=== PATIENT | male | born 1975 | race Caucasian/White ===

== ENCOUNTER 2022-10-07 09:36 | Emergency (ER) | payer OTHER, SELFPAY ==
[~2022-10-07] VITALS: Ht 175.3 cm; Wt 82.9 kg
[2022-10-07 09:37] VITALS: TEMP 96.8
[2022-10-07] MEDS ORDERED: TRUL0.5I SC (10:03)
[2022-10-07] MEDS ORDERED: LANTINJ4 SC (10:03)
[2022-10-07] MEDS ORDERED: HUMA100I3 SC (10:03)
[2022-10-07] MEDS ORDERED: METF-877 PO (10:04)
[2022-10-07 11:59] LABS: VENOUS BASE EXCESS -2.5 (-2.0-2.0); VENOUS HCO3 22.1 MMOL/L (23.0-27.0); VENOUS O2 SATURATION 87.8 % (60.0-80.0); VENOUS PARTIAL PRESSURE CO2 38.3 mmHg (38.0-50.0); VENOUS PARTIAL PRESSURE O2 55.1 mmHg (30.0-50.0); VENOUS STANDARD HCO3 22.1 MMOL/L; VENOUS TOTAL CO2 23.3 MMOL/L (24.0-28.0)
[2022-10-07 12:08] LABS: BASO # 0.1 10^3/uL (0.0-0.2); BASO % 0.7 % (0.0-1.0); EOS # 0.1 10^3/uL (0.0-0.5); EOS % 1.8 % (0.0-3.0); HEMATOCRIT 42.1 % (42.0-52.0); HEMOGLOBIN 14.7 g/dl (13.5-17.5); MEAN CORPUSCULAR HEMOGLOBIN 31.1 pg (27.0-33.0); MEAN CORPUSCULAR HGB CONC 34.9 g/dl (32.0-36.5); MONO # 0.5 10^3/uL (0.0-0.8); MONO % 7.6 % (2.0-8.0); NEUTROPHILS # 4.1 10^3/uL (1.5-8.5); NEUTROPHILS % 60.5 % (36.0-66.0); PLATELET COUNT, AUTOMATED 337 10^3/uL (150-450); RED BLOOD COUNT 4.73 10^6/uL (4.30-6.10); WHITE BLOOD COUNT 6.7 10^3/uL (4.0-10.0)
[2022-10-07 12:18] LABS: HEMOGLOBIN A1c 13.8 % (4.0-6.0)
[2022-10-07 12:37] LABS: LIPASE 48 U/L (12-53); OSMOLALITY SERUM 305 MOSM/KG (275-295)
[2022-10-07 12:39] LABS: ALBUMIN 3.7 G/DL (3.2-5.2); ALKALINE PHOSPHATASE 188 U/L (46-116); ALT/SGPT 17 U/L (7.0-40); AST/SGOT < 8 U/L (<34); BILIRUBIN,DIRECT < 0.1 MG/DL (<0.4); BILIRUBIN,TOTAL 0.4 MG/DL (0.3-1.2); TOTAL PROTEIN 7.3 G/DL (5.7-8.2)
[2022-10-07 12:41] LABS: ACETONE/KETONE 0.23 MMOL/L (0.02-0.27)
[2022-10-07] MEDS ORDERED: NS 1,000 ML IV ONE (13:40)
[2022-10-07] MEDS ORDERED: ONDANSETRON 4MG 2ML VIAL IV ONE (13:40)
[2022-10-07] MEDS ORDERED: KETOROLAC 30 MG/ML 1ML VIAL IV ONE (13:40)
[2022-10-07] MEDS ORDERED: ISOVUE-370 76% 100ML VIAL As Ordered ONE (13:47)
[2022-10-07] MEDS: GASTROGRAFIN SOLUTION 30ML PO SCH ×2 (13:57→14:43)
[2022-10-07 16:15] VITALS: BP 116/81
[2022-10-07 17:15] VITALS: O2SAT 98
== END 2022-10-07 17:24 | disposition home or self-care (01) ==
LOC: M ED 09:36
DX: K59.00 Constipation, unspecified (principal); E11.8 Type 2 diabetes mellitus with unspecified complications; Z83.3 Family history of diabetes mellitus; Z79.4 Long term (current) use of insulin; Z88.8 Allergy status to other drugs, medicaments and biological substances
CPT/HCPCS: 74177; 80047; 80076; 81001; 82010; 82803; 83036; 83690; 83930; 85025; 93005; 96374; 96375; 99285; J1885; J2405; Q9963; Q9967

== ENCOUNTER 2022-10-20 08:04 | Emergency (ER) | payer OTHER ==
[~2022-10-20] VITALS: Ht 175.3 cm; Wt 84.1 kg
[~2022-10-20 08:04] MED LIST: HUMA100I3 SC; LANTINJ4 SC; METF-877 PO; TRUL0.5I SC
[2022-10-20] MEDS ORDERED: NAPR-837 PO (10:37)
[2022-10-20 11:21] VITALS: BP 104/71; TEMP 98.2; O2SAT 100
== END 2022-10-20 11:23 | disposition home or self-care (01) ==
LOC: M ED 08:04
DX: M75.32 Calcific tendinitis of left shoulder (principal); E11.9 Type 2 diabetes mellitus without complications; Z79.4 Long term (current) use of insulin; Z88.8 Allergy status to other drugs, medicaments and biological substances

== ENCOUNTER → 2022-12-22 | Outpatient (CLI) | payer OTHER ==
[~2022-12-22] MED LIST changes: +ATOR40TA75 PO; +NAPR-837 PO; +TRES1INJ SC
== END ==
LOC: M SOG 15:58
PROVIDERS: ATTEND Orthopaedic Surgery
DX: M25.512 Pain in left shoulder (principal); M19.011 Primary osteoarthritis, right shoulder; M19.012 Primary osteoarthritis, left shoulder

== ENCOUNTER → 2023-02-01 | Outpatient (REF) | payer OTHER ==
[~2023-02-01] MED LIST changes: -ATOR40TA75 PO; -TRES1INJ SC
[2023-02-01 17:04] LABS: HEMATOCRIT 42.5 % (42.0-52.0); HEMOGLOBIN 15.2 g/dl (13.5-17.5); MEAN CORPUSCULAR HEMOGLOBIN 31.3 pg (27.0-33.0); MEAN CORPUSCULAR HGB CONC 35.8 g/dl (32.0-36.5); MEAN CORPUSCULAR VOLUME 87.6 fl (80.0-96.0); PLATELET COUNT, AUTOMATED 339 10^3/uL (150-450); RED BLOOD COUNT 4.85 10^6/uL (4.30-6.10); WHITE BLOOD COUNT 8.1 10^3/uL (4.0-10.0)
[2023-02-01 18:00] LABS: ALBUMIN 3.8 G/DL (3.2-5.2); ALKALINE PHOSPHATASE 169 U/L (46-116); ALT/SGPT 20 U/L (7.0-40); AST/SGOT < 8 U/L (<34); BILIRUBIN,TOTAL 0.5 MG/DL (0.3-1.2); BLOOD UREA NITROGEN 13 MG/DL (9-23); CALCIUM LEVEL 9.3 MG/DL (8.5-10.1); CARBON DIOXIDE LEVEL 27 MMOL/L (20-31); CHLORIDE LEVEL 97 MMOL/L (98-107); CHOLESTEROL LEVEL 208 MG/DL (<200); CHOLESTEROL RISK RATIO 6.13 (<5); CREATININE FOR GFR 0.67 MG/DL (0.70-1.30); GLOMERULAR FILTRATION RATE > 60.0 (>60); GLUCOSE, FASTING 296 MG/DL (60-100); HDL CHOLESTEROL 33.9 MG/DL (>40); NON-HDL-C 174.1 MG/DL; POTASSIUM SERUM 4.5 MMOL/L (3.5-5.1); SODIUM LEVEL 132 MMOL/L (136-145); THYROID STIMULATING HORMONE 2.412 uIU/ML (0.55-4.78); TOTAL PROTEIN 7.5 G/DL (5.7-8.2); TRIGLYCERIDES LEVEL 461 MG/DL (<150)
== END ==
LOC: M LAB REF 16:22
PROVIDERS: ATTEND Family Medicine Addiction Medicine
DX: E11.9 Type 2 diabetes mellitus without complications (principal)

== ENCOUNTER 2023-03-23 06:06 | Day surgery (SDC) | payer OTHER ==
[~2023-03-23] VITALS: Ht 172.7 cm; Wt 86.2 kg
[~2023-03-23 06:06] MED LIST changes: +ATOR40TA75 PO; +BSS IRRIG/VANCO(10MG)/TOBRA(5MG)/EPINEPH(1:1000-0.5CC)500ML BAG-ORONLY IR ONE; +CYCLOPENTOLATE 1% OPHTH SOLN 2ML BTL OD SCH; +LIDOCAINE 3.5 % 1ML OPHTH TOPICAL GEL OU ONE; +OFLOXACIN 0.3 % (OCUFLOX) OPTH SOL 5ML OD ONE; +PHENYLEPHRINE 10% OPHTH SOL 5ML OD PRN; +PHENYLEPHRINE 2.5% OPHTH SOL 2ML OD SCH; +TRES1INJ SC; +TROPICAMIDE 1% OPHTH SOLN 15ML OD SCH
[2023-03-23] MEDS ORDERED: LIDOCAINE 1% SDV 5ML VIAL As Ordered ONE (06:33)
[2023-03-23] MEDS ORDERED: CEFUROXIME 1MG/0.1ML INTRACAMERAL INJ As Ordered ONE (06:34)
[2023-03-23] MEDS ORDERED: fentaNYL 100 MCG/2 ML INJECTION As Ordered ONE (06:56)
[2023-03-23] MEDS ORDERED: MIDAZOLAM INJ 2MG/2ML VIAL As Ordered ONE (06:56)
[2023-03-23 10:00] VITALS: BP 138/86; TEMP 98.2; O2SAT 92
== END 2023-03-23 13:25 | disposition home or self-care (01) ==
LOC: M SDC 06:06
PROVIDERS: ATTEND Ophthalmology
DX: E11.36 Type 2 diabetes mellitus with diabetic cataract (principal); H25.11 Age-related nuclear cataract, right eye; Z79.899 Other long term (current) drug therapy; Z79.85 Long-term (current) use of injectable non-insulin antidiabetic drugs; Z88.8 Allergy status to other drugs, medicaments and biological substances
CPT/HCPCS: 66984; J0697; J2250; J3010; V2632

== ENCOUNTER → 2023-05-30 | Outpatient (REF) | payer OTHER, MEDICAID ==
[~2023-05-30] MED LIST changes: -BSS IRRIG/VANCO(10MG)/TOBRA(5MG)/EPINEPH(1:1000-0.5CC)500ML BAG-ORONLY IR ONE; -CYCLOPENTOLATE 1% OPHTH SOLN 2ML BTL OD SCH; +GABA-282 PO; -LIDOCAINE 3.5 % 1ML OPHTH TOPICAL GEL OU ONE; -OFLOXACIN 0.3 % (OCUFLOX) OPTH SOL 5ML OD ONE; -PHENYLEPHRINE 10% OPHTH SOL 5ML OD PRN; -PHENYLEPHRINE 2.5% OPHTH SOL 2ML OD SCH; -TROPICAMIDE 1% OPHTH SOLN 15ML OD SCH
[2023-05-30 18:46] LABS: ALBUMIN 3.8 G/DL (3.2-5.2); ALKALINE PHOSPHATASE 169 U/L (46-116); ALT/SGPT 23 U/L (7.0-40); AST/SGOT 23 U/L (<34); BILIRUBIN,TOTAL 0.5 MG/DL (0.3-1.2); BLOOD UREA NITROGEN 16 MG/DL (9-23); CALCIUM LEVEL 9.7 MG/DL (8.5-10.1); CARBON DIOXIDE LEVEL 25 MMOL/L (20-31); CHLORIDE LEVEL 97 MMOL/L (98-107); CHOLESTEROL LEVEL 284 MG/DL (<200); CHOLESTEROL RISK RATIO 7.75 (<5); CREATININE FOR GFR 0.77 MG/DL (0.70-1.30); GLOMERULAR FILTRATION RATE > 60.0 (>60); GLUCOSE, FASTING 347 MG/DL (60-100); HDL CHOLESTEROL 36.6 MG/DL (>40); NON-HDL-C 247.4 MG/DL; POTASSIUM SERUM 4.4 MMOL/L (3.5-5.1); SODIUM LEVEL 130 MMOL/L (136-145); TOTAL PROTEIN 7.6 G/DL (5.7-8.2); TRIGLYCERIDES LEVEL 884 MG/DL (<150)
[2023-05-30 19:17] LABS: HIV 1&2 SCREEN NEGATIVE (NEGATIVE)
[2023-05-30 19:25] LABS: HEPATITIS C VIRUS ABY INDEX < 0.02 INDEX (<0.8)
[2023-05-31 13:03] LABS: CREATININE, URINE 98.4 MG/DL; MAU/CREAT RATIO 32.5 MCG/MG (0.0-30.0)
== END ==
LOC: M LAB REF 17:18
PROVIDERS: ATTEND Physician Assistant
DX: Z11.9 Encounter for screening for infectious and parasitic diseases, unspecified (principal); E78.2 Mixed hyperlipidemia; E11.9 Type 2 diabetes mellitus without complications

== ENCOUNTER → 2023-08-10 | Day surgery (SDC) | payer OTHER ==
[~2023-08-10] VITALS: Ht 175.3 cm; Wt 86.5 kg
[~2023-08-10] MED LIST changes: +ATROPINE SULFATE 1% OPHTH SOLN 2ML BTL OS SCH; +BSS IRRIG/VANCO(10MG)/TOBRA(5MG)/EPINEPH(1:1000-0.5CC)500ML BAG-ORONLY As Ordered ONE; +CEFUROXIME 1MG/0.1ML INTRACAMERAL INJ As Ordered ONE; +DEXTROSE 50% 50ML SYRINGE IV PRN; +GLUCAGON INJ 1MG VIAL SC PRN; +GLUCOSE 4 GM CHEW PO PRN; +LIDOCAINE 1% SDV 5ML VIAL As Ordered ONE; +LIDOCAINE 3.5 % 1ML OPHTH TOPICAL GEL OU ONE; +MIDAZOLAM INJ 2MG/2ML VIAL As Ordered ONE; +NAPR-885 PO; +OFLOXACIN 0.3 % (OCUFLOX) OPTH SOL 5ML OS ONE; +PHENYLEPHRINE 10% OPHTH SOL 5ML OS PRN; +PHENYLEPHRINE 2.5% OPHTH SOL 2ML OS SCH; +TROPICAMIDE 1% OPHTH SOLN 15ML OS SCH; +fentaNYL 100 MCG/2 ML INJECTION As Ordered ONE
[2023-08-10 11:01] VITALS: BP 109/71; TEMP 97.9; O2SAT 95
[2023-08-10] MEDS: INSULIN LISPRO (NovoLOG) PER UNIT SC PRN (12:00)
== END | disposition home or self-care (01) ==
LOC: M SDC 10:26
PROVIDERS: ATTEND Ophthalmology
DX: H25.12 Age-related nuclear cataract, left eye (principal); Z53.09 Procedure and treatment not carried out because of other contraindication; R73.01 Impaired fasting glucose

== ENCOUNTER 2023-12-16 22:45 | Emergency (ER) | payer OTHER ==
[~2023-12-16] VITALS: Ht 175.3 cm; Wt 84.2 kg
[~2023-12-16 22:45] MED LIST changes: -ATROPINE SULFATE 1% OPHTH SOLN 2ML BTL OS SCH; -BSS IRRIG/VANCO(10MG)/TOBRA(5MG)/EPINEPH(1:1000-0.5CC)500ML BAG-ORONLY As Ordered ONE; -CEFUROXIME 1MG/0.1ML INTRACAMERAL INJ As Ordered ONE; -DEXTROSE 50% 50ML SYRINGE IV PRN; +GABA-1172 PO; -GABA-282 PO; -GLUCAGON INJ 1MG VIAL SC PRN; -GLUCOSE 4 GM CHEW PO PRN; -LIDOCAINE 1% SDV 5ML VIAL As Ordered ONE; -LIDOCAINE 3.5 % 1ML OPHTH TOPICAL GEL OU ONE; -MIDAZOLAM INJ 2MG/2ML VIAL As Ordered ONE; -OFLOXACIN 0.3 % (OCUFLOX) OPTH SOL 5ML OS ONE; -PHENYLEPHRINE 10% OPHTH SOL 5ML OS PRN; -PHENYLEPHRINE 2.5% OPHTH SOL 2ML OS SCH; -TROPICAMIDE 1% OPHTH SOLN 15ML OS SCH; -fentaNYL 100 MCG/2 ML INJECTION As Ordered ONE
[2023-12-16 22:49] VITALS: BP 136/76; TEMP 97.6; O2SAT 96
== END 2023-12-17 01:53 | disposition home or self-care (01) ==
LOC: M ED 22:45
DX: J06.9 Acute upper respiratory infection, unspecified (principal); E11.9 Type 2 diabetes mellitus without complications; I10 Essential (primary) hypertension; E78.5 Hyperlipidemia, unspecified; F32.9 Major depressive disorder, single episode, unspecified; Z79.4 Long term (current) use of insulin; Z79.899 Other long term (current) drug therapy; Z88.8 Allergy status to other drugs, medicaments and biological substances

== ENCOUNTER → 2024-09-04 | Outpatient (REF) | payer OTHER ==
[2024-09-04 19:11] LABS: BASO # 0.0 10^3/uL (0.0-0.2); BASO % 0.4 % (0.0-1.0); EOS # 0.2 10^3/uL (0.0-0.5); EOS % 2.0 % (0.0-3.0); LYMPH # 1.9 10^3/uL (1.5-5.0); LYMPH % 20.0 % (24.0-44.0); MONO # 0.5 10^3/uL (0.0-0.8); MONO % 5.6 % (2.0-8.0); NEUTROPHILS # 6.8 10^3/uL (1.5-8.5); NEUTROPHILS % 71.1 % (36.0-66.0); PLATELET COUNT, AUTOMATED 300 10^3/uL (150-450)
[2024-09-04 20:35] LABS: ALT/SGPT 20 U/L (7.0-40); AST/SGOT 12 U/L (<34); CALCIUM LEVEL 9.6 MG/DL (8.5-10.1); CARBON DIOXIDE LEVEL 23 MMOL/L (20-31); CHLORIDE LEVEL 94 MMOL/L (98-107); CHOLESTEROL LEVEL 254 MG/DL (<200); CHOLESTEROL RISK RATIO 7.88 (<5); CREATININE FOR GFR 0.87 MG/DL (0.70-1.30); GLOMERULAR FILTRATION RATE > 90.0 (>60); NON-HDL-C 221.8 MG/DL; POTASSIUM SERUM 5.0 MMOL/L (3.5-5.1); SODIUM LEVEL 131 MMOL/L (136-145); TRIGLYCERIDES LEVEL 1361 MG/DL (<150)
== END ==
LOC: M LAB REF 17:56
PROVIDERS: ATTEND Physician Assistant
DX: E78.2 Mixed hyperlipidemia (principal); E11.9 Type 2 diabetes mellitus without complications

== ENCOUNTER → 2024-09-11 | Outpatient (REF) | payer OTHER ==
[2024-09-20 01:02] LABS: ISLET CELL ANTIBODIES NEGATIVE (NEGATIVE)
[2024-09-20 21:27] LABS: GAD-65 AUTOANTIBODY < 5 IU/mL (<5)
== END ==
LOC: M LAB REF 17:58
PROVIDERS: ATTEND Physician Assistant
DX: E11.9 Type 2 diabetes mellitus without complications (principal); Z79.4 Long term (current) use of insulin